=== PATIENT | female | born 1940 | race Caucasian/White ===

== ENCOUNTER 2017-04-30 10:45 | Emergency (ER) | payer MEDICARE, OTHER ==
[2017-04-30] MEDS ORDERED: TETANUS/DIPHTHERIA/PERTUSSIS 0.5 ML SYRINGE IM ONE ×2 (11:50→12:13)
[2017-04-30] MEDS ORDERED: AMPICILLIN/SULBACTAM 3 GM in SODIUM CHLORIDE 0.9% MINIBAG 100 ML IV STA (11:50)
--- NOTE | 2017-04-30 12:57 | ED Physician Documentation ---
PD HPI UPPER EXT INJURY - Stated complaint Stated Complaint: LT HAND DOG BITE - Chief complaint Chief Complaint: Ext Problem - History obtained from History obtained from: Patient - History of Present Illness Location: Left, Hand Type of injury: Other (Dog bite) Where injury occurred: Home Timing - onset: How many days ago (2) Associated symptoms: Swelling, Discolored Similar symptoms before: Has not had sx before - Additonal information Additional information: The patient is a 76-year-old female who was bitten on the left hand by her pet dog 2 days ago when she was giving him a bath. She presents now out of concern for possible infection. She denies fever. She is right-hand dominant. Tetanus status is unknown. The dog has undergone rabies vaccinations, and can be observed. Review of Systems Constitutional: denies: Fever Nose: denies: Congestion Throat: denies: Sore throat Cardiac: denies: Chest pain / pressure Respiratory: denies: Dyspnea GI: denies: Abdominal Pain, Nausea, Vomiting Skin: reports: Bite / sting Musculoskeletal: reports: Extremity pain (Left hand.) Neurologic: denies: Focal weakness, Numbness, Headache PD PAST MEDICAL HISTORY - Past Medical History Past Medical History: Yes Cardiovascular: High cholesterol Endocrine/Autoimmune: None Psych: Anxiety - Past Surgical History Past Surgical History: Yes General: Appendectomy HEENT: Tonsil/Adenoidectomy - Present Medications Home Medications: Ambulatory Orders Medication Instructions Recorded Confirmed clonazePAM [KlonoPIN] 1 mg PO DAILY 10/20/13 04/30/17 traZODone [Desyrel] 100 mg PO HS 10/20/13 04/30/17 Amox/Clav 875/125 [Augmentin] 1 each PO Q12H #14 tablet 04/30/17 - Allergies Allergies/Adverse Reactions: Allergies Allergy/AdvReac Type Severity Reaction Status Date / Time Sulfa (Sulfonamide Allergy Unknown Verified 10/27/14 20:19 Antibiotics) - Social History Does the pt smoke?: Yes Smoking Status: Current every day smoker Does the pt drink ETOH?: No Does the pt have substance abuse?: No - Immunizations Immunizations are current?: No Immunizations: TDAP >10years/unknown - POLST Patient has POLST: No PD ED PE NORMAL - Vitals Vital signs reviewed: Yes (normal) - General General: Alert and oriented X 3, Well developed/nourished - HEENT HEENT: Atraumatic - Cardiac Cardiac: RRR, No murmur - Respiratory Respiratory: No respiratory distress - Derm Derm: No rash - Extremities Extremities: Other (There is a superficial bite wound across the dorsum of the left hand, about 3 cm in length. There is surrounding erythema and slight soft tissue swelling. There is minimal warmth to palpation, and no lymphangitic streaking. There is full flexion and extension of the fingers against resistance. Distal neurovascular is intact.) - Neuro Neuro: Alert and oriented X 3, No motor deficit, No sensory deficit Results - Vitals Vitals: Vital Signs - 24 hr 04/30/17 13:13 Temperature 36.5 C Heart Rate 53 L Respiratory 18 Rate Blood Pressure 125/85 H O2 Saturation 98 Oxygen O2 Source Room air PD MEDICAL DECISION MAKING - ED course Complexity details: re-evaluated patient, considered differential, d/w patient ED course: The patient's presentation is significant for an infected dog bite to the left hand. There is no evidence of abscess or tendon involvement. Treatment in the emergency department included administration of Unasyn 3 g IV, and administration of tetanus booster. She is being discharged with prescription for Augmentin. I discussed with her and her the expected course of injury, antibiotic treatment and outpatient follow-up, as well as potentially worrisome signs or symptoms that should prompt reevaluation in the emergency department. Departure - Departure Disposition: 01 Home, Self Care Clinical Impression: Dog bite of left hand with infection Qualifiers: Encounter type: initial encounter Qualified Code(s): S61.452A - Open bite of left hand, initial encounter Condition: Stable Instructions: ED Bite Dog Follow-Up: González Springer MD [Primary Care Provider] - Prescriptions: Amox/Clav 875/125 [Augmentin] 1 each PO Q12H #14 tablet Comments: Keep your left hand elevated as much of the time as possible. Take Augmentin twice daily as prescribed. Eat probiotic yogurt while on antibiotic therapy. You can use Tylenol or ibuprofen if needed for pain or discomfort. Follow up with your primary physician within one week. Call to schedule an appointment. Return to the emergency department if you develop increasing redness, swelling, pain, red streaking up your arm, or otherwise worsening symptoms. Discharge Date/Time: 04/30/17 13:13
[2017-04-30 13:18] VITALS: BP 125/85
== END 2017-04-30 13:13 | disposition home or self-care (01) ==
LOC: ED 10:45
DX: S61.452A Open bite of left hand, initial encounter (principal); L08.9 Local infection of the skin and subcutaneous tissue, unspecified; W54.0XXA Bitten by dog, initial encounter; Z23 Encounter for immunization; Y93.F1 Activity, caregiving, bathing; Y92.009 Unspecified place in unspecified non-institutional (private) residence as the place of occurrence of the external cause; F17.200 Nicotine dependence, unspecified, uncomplicated
CPT/HCPCS: 90471; 96374; 99283

== ENCOUNTER 2017-07-17 13:47 | Outpatient (CLI) | payer MEDICARE, OTHER | END 2017-07-17 13:48 | disposition critical access hospital (66) | LOC: EMS 13:47 | PROVIDERS: ATTEND Surgery | DX: S61.432A Puncture wound without foreign body of left hand, initial encounter (principal); W54.0XXA Bitten by dog, initial encounter; Y92.039 Unspecified place in apartment as the place of occurrence of the external cause | CPT/HCPCS: A0425; A0429 ==

== ENCOUNTER 2017-07-17 14:10 | Emergency (ER) | payer MEDICARE, OTHER ==
[2017-07-17] MEDS ORDERED: AMOX/CLAV 875 MG/125 MG TABLET PO STA ×2 (15:29→16:11)
[2017-07-17] MEDS ORDERED: AMOX/CLAV 875 MG/125 MG TABLET PO ONE ×2 (15:39→16:17)
--- NOTE | 2017-07-17 15:48 | ED Physician Documentation ---
History of Present Illness - Stated complaint Stated Complaint: HAND SWELLING SP DOG BITE 2 DAYS AGO - Chief complaint Chief Complaint: Ext Problem - Additonal information Additional information: hx frm pt 76 female bit by her healthy immunized dog a few days ago two punctures medial R hand and index also tore dorsal skin on coffee table when she pulled away now red and swollen dog healthy and immunized Review of Systems Skin: reports: Bite / sting PD PAST MEDICAL HISTORY - Past Medical History Cardiovascular: High cholesterol Endocrine/Autoimmune: None Psych: Anxiety - Past Surgical History Past Surgical History: Yes General: Appendectomy HEENT: Tonsil/Adenoidectomy - Present Medications Home Medications: Ambulatory Orders Medication Instructions Recorded Confirmed clonazePAM [KlonoPIN] 1 mg PO DAILY 10/20/13 07/17/17 traZODone [Desyrel] 100 mg PO HS 10/20/13 07/17/17 Amox/Clav 875/125 [Augmentin] 1 each PO Q12H #14 tablet 07/17/17 - Allergies Allergies/Adverse Reactions: Allergies Allergy/AdvReac Type Severity Reaction Status Date / Time Sulfa (Sulfonamide Allergy Unknown Verified 10/27/14 20:19 Antibiotics) - Social History Does the pt smoke?: Yes Smoking Status: Current every day smoker Does the pt drink ETOH?: No Does the pt have substance abuse?: No - Immunizations Immunizations are current?: No Immunizations: TDAP >10years/unknown - POLST Patient has POLST: No PD ED PE NORMAL - Vitals Vital signs reviewed: Yes (pt is thin and still fully dressed in a winter coat - will recheck BP) - Extremities Extremities: Other (R hand - two punctures and a skin tear to medial hand with erythema swellin and small amt of streaking, able to range fingers s sig pain, no necrosis or crepitus) Results - Vitals Vitals: Vital Signs - 24 hr 07/17/17 07/17/17 14:14 15:59 Temperature 37.1 C 36.8 C Heart Rate 64 62 Respiratory 16 16 Rate Blood Pressure 96/53 L 100/59 L O2 Saturation 96 98 Oxygen O2 Source Room air PD MEDICAL DECISION MAKING - ED course ED course: BP was a little better = states is her baseline Departure - Departure Disposition: 01 Home, Self Care Clinical Impression: Infected dog bite Condition: Good Instructions: ED Bite Animal General Prescriptions: Amox/Clav 875/125 [Augmentin] 1 each PO Q12H #14 tablet Comments: Gently wash the wounds and then apply antibiotic ointment and a clean bandage twice a day Please come back to the ER for a wound check tomorrow or Thursday unless significantly better Return sooner if the infection worsens - sometimes, even on good antibiotic pills, the infection worsens and admission for IV antibiotics is necessary
[2017-07-17 15:59] VITALS: BP 100/59
== END 2017-07-17 16:25 | disposition home or self-care (01) ==
LOC: ED 14:10
DX: S61.451A Open bite of right hand, initial encounter (principal); L08.9 Local infection of the skin and subcutaneous tissue, unspecified; W54.0XXA Bitten by dog, initial encounter; E78.00 Pure hypercholesterolemia, unspecified; F17.200 Nicotine dependence, unspecified, uncomplicated
CPT/HCPCS: 99283; A9270

== ENCOUNTER 2018-05-15 13:31 | Outpatient (CLI) | payer MEDICARE, OTHER | END 2018-05-15 13:32 | disposition critical access hospital (66) | LOC: EMS 13:31 | PROVIDERS: ATTEND Surgery | DX: M25.552 Pain in left hip (principal); M79.605 Pain in left leg; M54.9 Dorsalgia, unspecified; V03.10XA Pedestrian on foot injured in collision with car, pick-up truck or van in traffic accident, initial encounter; Y92.413 State road as the place of occurrence of the external cause | CPT/HCPCS: A0425; A0427 ==

== ENCOUNTER 2018-05-15 13:50 | Emergency (ER) | payer MEDICARE, OTHER ==
[2018-05-15] MEDS ORDERED: IOPAMIDOL-300 100 ML VIAL IVP ONE (13:51)
[2018-05-15] MEDS ORDERED: MORPHINE 10 MG/ML VIAL IVP STA (13:56)
[2018-05-15] MEDS ORDERED: SODIUM CHLORIDE 0.9% 1,000 ML IV ONE (13:56)
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
[2018-05-15 14:06] LABS: BASOPHILS % (AUTO) 0.1 %; EOSINOPHILS # (AUTO) 0.2 10^3/uL (0.0-0.7); HGB - HEMOGLOBIN 12.1 g/dL (12.0-16.0); LYMPHOCYTES # (AUTO) 2.4 10^3/uL (1.5-3.5); MEAN CORPUSCULAR HEMOGLOBIN 34.5 pg (27.0-31.0); MEAN CORPUSCULAR HGB CONC 33.6 g/dL (32.0-36.0); MEAN CORPUSCULAR VOLUME 102.7 fL (81.0-99.0); MEAN PLATELET VOLUME 6.9 fL (7.9-10.8); MONOCYTES # (AUTO) 0.5 10^3/uL (0.0-1.0); MONOCYTES % (AUTO) 5.5 %; NEUTROPHILS # (AUTO) 6.1 10^3/uL (1.5-6.6); NEUTROPHILS % (AUTO) 66.4 %; PLT - PLATELET COUNT 333 10^3/uL (130-450); RED BLOOD COUNT 3.51 10^6/uL (4.20-5.40); RED CELL DISTRIBUTION WIDTH 12.1 % (12.0-15.0); WHITE BLOOD COUNT 9.1 x10^3/uL (4.8-10.8)
[2018-05-15] MEDS ORDERED: IOPAMIDOL-300 100 ML VIAL ONE ×2 (14:15→14:28)
[2018-05-15 14:18] LABS: INR 1.1 (0.8-1.2); PT - PROTHROMBIN TIME 12.6 secs (9.9-12.6)
[2018-05-15 14:19] LABS: ALBUMIN 3.4 g/dL (3.2-5.5); ALKALINE PHOSPHATASE 81 IU/L (42-121); ALT ALANINE AMINOTRANSFERASE 37 IU/L (10-60); AST ASPARTATE AMINOTRANSFERASE 45 IU/L (10-42); BILIRUBIN,TOTAL 0.8 mg/dL (0.2-1.0); BUN - BLOOD UREA NITROGEN 19 mg/dL (6-20); CALCIUM 9.2 mg/dL (8.5-10.3); CARBON DIOXIDE - CO2 25 mmol/L (21-32); CHLORIDE 103 mmol/L (101-111); CREATININE 0.9 mg/dL (0.4-1.0); GFR - MDRD 61 (>89); GLUCOSE 117 mg/dL (70-100); LIPASE 56 U/L (22-51); SODIUM 137 mmol/L (135-145); TOTAL PROTEIN 6.7 g/dL (6.7-8.2)
[2018-05-15] MEDS ORDERED: HYDROmorphone 2 MG/ML VIAL IVP STA (14:46)
[2018-05-15 15:49] VITALS: BP 90/55
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
[2018-05-15] MEDS: IOPAMIDOL-300 100 ML VIAL IVP ONE ×2 (16:31→16:33)
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
== END 2018-05-15 16:00 | disposition short-term general hospital (02) ==
LOC: EDUNIT# → ED 13:50
DX: S72.402A Unspecified fracture of lower end of left femur, initial encounter for closed fracture (principal); S82.145A Nondisplaced bicondylar fracture of left tibia, initial encounter for closed fracture; S82.831A Other fracture of upper and lower end of right fibula, initial encounter for closed fracture; S32.111A Minimally displaced Zone I fracture of sacrum, initial encounter for closed fracture; S32.040A Wedge compression fracture of fourth lumbar vertebra, initial encounter for closed fracture; S32.301A Unspecified fracture of right ilium, initial encounter for closed fracture; S32.10XA Unspecified fracture of sacrum, initial encounter for closed fracture; I71.2 Thoracic aortic aneurysm, without rupture; K86.9 Disease of pancreas, unspecified; F17.200 Nicotine dependence, unspecified, uncomplicated; M50.321 Other cervical disc degeneration at C4-C5 level; V03.00XA Pedestrian on foot injured in collision with car, pick-up truck or van in nontraffic accident, initial encounter; Y93.01 Activity, walking, marching and hiking
CPT/HCPCS: 36415; 70450; 71260; 72125; 72128; 72131; 73080; 73130; 73560; 73610; 73701; 74177; 80053; 80320; 83690; 85025; 85610; 96374; 96375; 99284; J1170; Q9967

== ENCOUNTER 2018-06-08 10:00 | Outpatient (CLI) | payer MEDICARE, OTHER ==
[2018-06-08 13:06] LABS: BASOPHILS # (AUTO) 0.1 10^3/uL (0.0-0.1); BASOPHILS % (AUTO) 1.4 %; EOSINOPHILS # (AUTO) 0.3 10^3/uL (0.0-0.7); EOSINOPHILS % (AUTO) 4.1 %; HGB - HEMOGLOBIN 10.8 g/dL (12.0-16.0); LYMPHOCYTES # (AUTO) 1.3 10^3/uL (1.5-3.5); LYMPHOCYTES % (AUTO) 19.8 %; MEAN CORPUSCULAR HEMOGLOBIN 31.8 pg (27.0-31.0); MEAN CORPUSCULAR HGB CONC 32.9 g/dL (32.0-36.0); MEAN CORPUSCULAR VOLUME 96.7 fL (81.0-99.0); MEAN PLATELET VOLUME 7.2 fL (7.9-10.8); MONOCYTES # (AUTO) 0.6 10^3/uL (0.0-1.0); MONOCYTES % (AUTO) 9.5 %; NEUTROPHILS # (AUTO) 4.2 10^3/uL (1.5-6.6); NEUTROPHILS % (AUTO) 65.2 %; PLT - PLATELET COUNT 472 10^3/uL (130-450); RED BLOOD COUNT 3.39 10^6/uL (4.20-5.40); RED CELL DISTRIBUTION WIDTH 17.2 % (12.0-15.0); WHITE BLOOD COUNT 6.4 x10^3/uL (4.8-10.8)
[2018-06-08 13:16] LABS: CALCIUM 8.9 mg/dL (8.5-10.3); CREATININE 0.6 mg/dL (0.4-1.0)
== END 2018-06-08 10:01 ==
LOC: LAB.R 10:00
PROVIDERS: ATTEND Internal Medicine
DX: I10 Essential (primary) hypertension (principal); R79.89 Other specified abnormal findings of blood chemistry; R68.89 Other general symptoms and signs
CPT/HCPCS: 80048; 85025

== ENCOUNTER 2019-01-04 09:30 | Emergency (ER) | payer MEDICARE, OTHER ==
[2019-01-04 09:44] VITALS: BP 108/57
== END 2019-01-04 11:15 | disposition left against medical advice (07) ==
LOC: ED 09:30
DX: K59.00 Constipation, unspecified (principal); Z53.21 Procedure and treatment not carried out due to patient leaving prior to being seen by health care provider

== ENCOUNTER 2019-01-18 14:58 | Outpatient (CLI) | payer MEDICARE, OTHER ==
--- NOTE | 2019-01-19 10:50 | XRAY Report ---
Reason: FRACTURE OF OTHER PARTS OF PELVIS, SEQUELA,PAIN IN Procedure Date: 01/18/2019 Accession Number: [id number] / [id number] Procedure: XRN - Hip w/Pelvis 2-3V LT CPT Code: FULL RESULT: EXAM: LEFT HIP RADIOGRAPHY EXAM DATE: 01/18/2019 03:25 PM. CLINICAL HISTORY: Fracture of other parts of pelvis, sequela, pain. COMPARISON: ABDOMEN/PELVIS W/ 05/15/2018 3:06 PM. TECHNIQUE: 2 views. FINDINGS: Bones: There are 2 transverse fixation screws across the right SI joint; the inferior screw crosses both SI joints. There is a second long fixation screw fixating a right obturator ring fracture at the junction of superior pubic ramus and acetabulum. Moderate lucency is noted along the threads of this fixation screw consistent with motion/loosening. There is apparent mature healing of the fixated fracture. Healing changes are noted of the inferior pubic ramus fracture. Sequelae of prior nondisplaced fractures of the left obturator ring are noted. No acute fracture. No acute fractures or significant malalignment. Joints: No dislocation or subluxation. Mild asymmetric joint space narrowing of the left hip. No significant osteophytosis. Soft Tissues: Normal. No soft tissue swelling. IMPRESSION: 1. Sequelae of right hemipelvis fracture fixation as described. 2. Healing fracture of the left obturator ring. No acute fractures appreciated. 3. Mild asymmetric joint space narrowing of the left hip weightbearing articular cartilage. RADIA
--- NOTE | 2019-01-19 10:51 | XRAY Report ---
Reason: FRACTURE OF OTHER PARTS OF PELVIS, SEQUELA,PAIN IN Procedure Date: 01/18/2019 Accession Number: [id number] / [id number] Procedure: XRN - Ankle 3 View LT CPT Code: FULL RESULT: EXAM: LEFT ANKLE RADIOGRAPHY EXAM DATE: 01/18/2019 03:49 PM. CLINICAL HISTORY: Fracture of other parts of pelvis. Pain. COMPARISON: KNEE 3 VIEW LT 01/18/2019 3:29 PM. TECHNIQUE: 3 views. FINDINGS: Bones: Normal. No fractures or bone lesions. Joints: Normal. No effusion. No subluxations. The ankle mortise is normally aligned. Soft Tissues: Normal. No soft tissue swelling. IMPRESSION: Normal ankle radiography. RADIA
--- NOTE | 2019-01-19 10:51 | XRAY Report ---
Reason: FRACTURE OF OTHER PARTS OF PELVIS, SEQUELA,PAIN IN Procedure Date: 01/18/2019 Accession Number: [id number] / [id number] Procedure: XRN - Knee 3 View LT CPT Code: FULL RESULT: EXAM: LEFT KNEE RADIOGRAPHY EXAM DATE: 01/18/2019 03:29 PM. CLINICAL HISTORY: Fracture of other parts of pelvis, sequela, pain in. COMPARISON: KNEE 4 VIEW BILAT 05/15/2018 2:27 PM. TECHNIQUE: 3 views. FINDINGS: Bones: Operative sequela of open reduction internal fixation of an impacted comminuted intra-articular fracture distal femoral metaphysis. Fixation has been performed with bilateral plate and screw fixation devices and multiple interlocking screws. Fracture is healing with roughly 7-8 mm of impaction; otherwise alignment appears approximately anatomic. There is no evidence of hardware failure or delayed complication. Joints: Small to moderate suprapatellar effusion is present. Soft Tissues: Normal. No soft tissue swelling. IMPRESSION: Operative changes after fracture fixation as described. RADIA
== END 2019-01-18 14:59 | disposition home or self-care (01) ==
LOC: DI.N 14:58
PROVIDERS: ATTEND Internal Medicine
DX: M25.562 Pain in left knee (principal); S32.89XD Fracture of other parts of pelvis, subsequent encounter for fracture with routine healing

== ENCOUNTER 2021-05-10 16:39 | Outpatient (CLI) | payer MEDICARE, OTHER | END 2021-05-10 16:40 | disposition critical access hospital (66) | LOC: EMS 16:39 | DX: Z04.3 Encounter for examination and observation following other accident (principal) | CPT/HCPCS: A0425; A0429 ==

== ENCOUNTER 2021-05-10 17:00 | Emergency (ER) | payer MEDICARE, OTHER ==
[2021-05-10 17:39] VITALS: BP 100/62
== END 2021-05-10 17:46 | disposition left against medical advice (07) ==
LOC: EDUNIT# → ED 17:00
DX: Z53.21 Procedure and treatment not carried out due to patient leaving prior to being seen by health care provider (principal)

== ENCOUNTER 2021-07-13 10:01 | Outpatient (CLI) | payer MEDICARE, OTHER ==
[2021-07-13] MEDS ORDERED: IOPAMIDOL-300 100 ML VIAL ONE (10:25)
[2021-07-13] MEDS ORDERED: IOVERSOL 320 50 ML VIAL ONE (10:25)
[2021-07-13 10:59] LABS: CREATININE 0.9 mg/dL (0.4-1.0)
[2021-07-13] MEDS ORDERED: IOPAMIDOL-300 100 ML VIAL IVP ONE (11:39)
[2021-07-13] MEDS ORDERED: IOVERSOL 320 50 ML VIAL PO ONE (11:40)
--- NOTE | 2021-07-13 17:17 | CT Report ---
PROCEDURE: Abdomen/Pelvis W INDICATIONS: IRRITABLE BOWEL SYNDROME CONTRAST: IV CONTRAST: Isovue 370 ml: 100 PO CONTRAST: Optiray 320 ml50 TECHNIQUE: After the administration of oral and IV contrast, 5 mm thick sections acquired from the diaphragms to the symphysis. 5 mm thick coronal and sagittal reformats were acquired. For radiation dose reducti on, the following was used: automated exposure control, adjustment of mA and/or kV according to carlos ent size. COMPARISON: 05/07/2018, 10/27/2014 FINDINGS: Image quality: Excellent. ABDOMEN: Lung bases: Mild scarring/atelectasis can be seen at the lung bases dependently. Heart size is tamar l. A small hiatal hernia is incidentally noted. Solid organs: Liver and spleen are normal in size and enhancement. Gallbladder wall does not appear thickened. Biliary system is non dilated. Pancreas enhances normally. No adrenal nodules. Kidn eys demonstrate normal size and enhancement, without hydronephrosis. Peritoneum and bowel: Generalized wall thickening can be seen involving the distal colon, with mild h yperenhancement of the trammell. There are proximal colon demonstrates no significant abnormality. No di lated loops of small bowel are seen. No free air or significant free fluid can be seen. No focal flui d collection can be seen to suggest abscess. Nodes and vessels: No retroperitoneal or mesenteric adenopathy by size criteria. Aorta and inferior vena cava are normal in size. Miscellaneous: No ventral hernias. Anterior abdominal wall jeff can be seen. PELVIS: Genitourinary: Bladder wall thickness is normal. Miscellaneous: No inguinal hernias or adenopathy. Bones: No suspicious bony lesions. Postoperative change of the right pelvis can be seen. No vertebra l body compression fractures. Mild S-shaped scoliotic curvature is seen. Degenerative changes are se en throughout, which are worst at the L5-S1 level. IMPRESSION: Wall thickening and hyperenhancement can be seen involving the distal colon, which is co nsistent with the given clinical history. No findings of perforation or abscess are detected. Incidental note is made of: Small hiatal hernia Anterior abdominal wall jeff S-shaped scoliotic curvature Focal L5-S1 degenerative change Right pelvis postoperative change Reviewed by: Nishant Burgos MD on 07/13/2021 4:16 PM AKDT Approved by: Nishant Burgos MD on 07/13/2021 4:16 PM MARCELINA Station ID: [id number]
== END 2021-07-13 10:02 | disposition home or self-care (01) ==
LOC: LAB 10:01
PROVIDERS: ATTEND Internal Medicine
DX: K58.8 Other irritable bowel syndrome (principal)
CPT/HCPCS: 36415; 74177; 82565; Q9967

== ENCOUNTER 2021-08-29 15:17 | Outpatient (CLI) | payer MEDICARE, OTHER | END 2021-08-29 15:18 | disposition home or self-care (01) | LOC: LAB 15:17 | PROVIDERS: ATTEND Surgery | DX: R19.7 Diarrhea, unspecified (principal) | CPT/HCPCS: 87493 ==

== ENCOUNTER 2021-09-02 10:39 | Outpatient (CLI) | payer MEDICARE, OTHER | END 2021-09-02 10:40 | disposition home or self-care (01) | LOC: LAB 10:39 | PROVIDERS: ATTEND Surgery | DX: Z53.9 Procedure and treatment not carried out, unspecified reason (principal) ==

== ENCOUNTER 2021-09-18 10:15 | Day surgery (SDC) | payer MEDICARE, OTHER ==
[2021-09-18] MEDS ORDERED: LIDOCAINE-MPF 2% 5 ML VIAL TD ONE (10:16)
[2021-09-18] MEDS ORDERED: PROPOFOL 200 MG/20 ML VIAL IVP ONE (10:16)
[2021-09-18] MEDS ORDERED: PROPOFOL 500 MG/50 ML 500 MG/50 ML VIAL IV ONE (10:16)
[2021-09-18] MEDS ORDERED: LACTATED RINGERS 1,000 ML IV ONE ×2 (10:24→13:34)
--- NOTE | 2021-09-18 12:05 | ANESTHESIA ---
Pre-Anesthesia VS, & Labs - Diagnosis change in bowel habits - Procedure colonoscopy Vital Signs: Temp Pulse Resp BP Pulse Ox 36.6 C 73 12 124/84 H 98 09/18/21 10:24 09/18/21 10:24 09/18/21 10:24 09/18/21 10:24 09/18/21 10:24 Height: 5 ft 5 in Weight (kg): 49.3 kg Body Mass Index: 18.1 BMI Classification: Underweight - NPO >8 hours - Is Patient ?: No Home Medications and Allergies Allergies/Adverse Reactions: Allergies Allergy/AdvReac Type Severity Reaction Status Date / Time Sulfa (Sulfonamide Allergy Unknown Verified 09/17/21 14:01 Antibiotics) Anes History & Medical History - Anesthetic History Anesthesia Complications: reports: No previous complications Family history of Anesthesia Complications: Denies Family history of Malignant Hyperthermia: Denies - Medical History Cardiovascular: reports: None Pulmonary: reports: None Gastrointestinal: reports: Other Urinary: reports: None Musculoskeletal: reports: Other Endocrine/Autoimmune: reports: None Skin: reports: None Smoking Status: Current every day smoker - Surgical History General: reports: Appendectomy, Other Eyes Ears Nose Throat (EENT): reports: Tonsil/Adenoidectomy Gynecologic: reports: Oophrectomy Orthopedic: reports: Other Exam General: Alert, Oriented x3, Cooperative Dental: WNL Mouth Openin Fingerbreadth Neck Mobility: Normal Mallampati classification: II Thyromental Distance: 4-6 cm Respiratory: Lungs clear Cardiovascular: Regular rate Plan Anesthesia Type: Total IV Consent for Procedure(s) Verified and Reviewed: Yes Code Status: Attempt Resuscitation ASA classification: 2-Mild systemic disease Is this case an emergency?: No
--- NOTE | 2021-09-18 14:27 | ANESTHESIA POST OP EVALUATION ---
Anesthesia Post Eval - Post Anesthesia Eval Vitals: Last Vital Signs Temp 36.6 C 09/18/21 13:45 Pulse 68 09/18/21 13:45 Resp 16 09/18/21 13:45 BP 96/65 09/18/21 13:45 Pulse Ox 95 09/18/21 13:45 CV Function Including HR & BP: Stable Pain Control: Satisfactory Nausea & Vomiting: Negative Mental Status: Baseline Respiratory Status: Airway Patent Hydration Status: Satisfactory Anesthesia Complications: None
[2021-09-18 14:35] VITALS: BP 122/67
== END 2021-09-18 10:16 | disposition home or self-care (01) ==
LOC: SDS 10:15
PROVIDERS: ATTEND Surgery
PROC: 0DBE8ZX Excision of Large Intestine, Via Natural or Artificial Opening Endoscopic, Diagnostic (ICD-10-PCS; principal; 2021-09-18 11:15)
DX: R19.7 Diarrhea, unspecified (principal); D12.2 Benign neoplasm of ascending colon; K63.5 Polyp of colon; J44.9 Chronic obstructive pulmonary disease, unspecified; F41.9 Anxiety disorder, unspecified; F32.9 Major depressive disorder, single episode, unspecified; G47.30 Sleep apnea, unspecified; F17.200 Nicotine dependence, unspecified, uncomplicated; G62.9 Polyneuropathy, unspecified; Z79.82 Long term (current) use of aspirin; Z79.899 Other long term (current) drug therapy
CPT/HCPCS: 45380; J7120

== ENCOUNTER 2022-03-07 17:29 | Outpatient (CLI) | payer MEDICARE, OTHER | END 2022-03-07 17:30 | disposition EMS.NT | LOC: EMS 17:29 | DX: Z03.89 Encounter for observation for other suspected diseases and conditions ruled out (principal) ==

== ENCOUNTER 2022-05-17 08:14 | Outpatient (CLI) | payer MEDICARE, OTHER | END 2022-05-17 08:15 | disposition EMS.NT | LOC: EMS 08:14 | DX: R51.9 Headache, unspecified (principal) ==

== ENCOUNTER 2022-07-11 21:13 | Outpatient (CLI) | payer MEDICARE, OTHER | END 2022-07-11 21:14 | disposition short-term general hospital (02) | LOC: EMS 21:13 | DX: M25.551 Pain in right hip (principal); W01.0XXA Fall on same level from slipping, tripping and stumbling without subsequent striking against object, initial encounter; Y93.K1 Activity, walking an animal; Y92.481 Parking lot as the place of occurrence of the external cause | CPT/HCPCS: A0425; A0427 ==

== ENCOUNTER 2022-11-11 14:43 | Emergency (ER) | payer MEDICARE, OTHER ==
[2022-11-11] MEDS ORDERED: oxyCODONE 5 MG TABLET PO STA (15:29)
--- NOTE | 2022-11-11 15:40 | ED Physician Documentation ---
PD HPI LOWER EXT INJURY - Stated complaint Stated Complaint: HIP/LEG/BACKSIDE PX - Chief complaint Chief Complaint: Ext Problem - History obtained from History obtained from: Patient, Family (son) - Additional information Additional information: Here with son Ken R hip 07/10 with ORIF In snf x 1 mo then HH, released from home health Can't walk Pain not controlled Has bed sore not eating sent for placement. Review of Systems Constitutional: reports: Fever, Chills Nose: reports: Reviewed and negative Throat: reports: Reviewed and negative Cardiac: reports: Reviewed and negative Respiratory: reports: Reviewed and negative PD PAST MEDICAL HISTORY - Past Medical History Cardiovascular: None Respiratory: None Endocrine/Autoimmune: None GI: Other : None HEENT: Chronic vision loss Psych: Depression Musculoskeletal: Other Derm: None - Past Surgical History Past Surgical History: Yes General: Appendectomy, Other Ortho: Other /AUDITOR: Oophrectomy HEENT: Tonsil/Adenoidectomy - Allergies Allergies/Adverse Reactions: Allergies Allergy/AdvReac Type Severity Reaction Status Date / Time Sulfa (Sulfonamide Allergy Unknown Verified 11/11/22 14:46 Antibiotics) - Social History Does the pt smoke?: Yes Smoking Status: Current every day smoker Does the pt drink ETOH?: No Does the pt have substance abuse?: No - Immunizations Immunizations are current?: No Immunizations: TDAP >10years/unknown - POLST Patient has POLST: No PD ED PE NORMAL - Vitals Vital signs reviewed: Yes - General General: Alert and oriented X 3, No acute distress, Other (V thin) - HEENT HEENT: PERRL, EOMI - Neck Neck: Supple, no meningeal sign, No bony TTP, No bruit - Cardiac Cardiac: RRR, No murmur - Respiratory Respiratory: No respiratory distress, Clear bilaterally - Abdomen Abdomen: Normal bowel sounds, Soft, Non tender - Back Back: Other (Mostly stage 2 pressure ulcer with pinpoint deeper hole centrally) - Derm Derm: Normal color, Warm and dry - Extremities Extremities: No edema, No calf tenderness / cord - Neuro Neuro: Alert and oriented X 3, Normal speech Results - Vitals Vitals: Vital Signs - 24 hr 11/11/22 11/11/22 11/11/22 14:46 15:04 17:02 Temperature 36.6 C Heart Rate 64 51 L 58 L Respiratory 64 H 18 18 Rate Blood Pressure 144/86 H 113/74 137/76 H O2 Saturation 97 95 98 Oxygen O2 Source Room air - Labs Labs: Laboratory Tests 11/11/22 11/11/22 11/11/22 15:40 15:40 15:59 WBC 6.4 RBC 4.77 Hgb 14.4 Hct 43.5 MCV 91.2 MCH 30.2 MCHC 33.1 RDW 13.2 Plt Count 224 MPV 9.8 Neut # (Auto) 4.1 Lymph # (Auto) 1.6 Randall # (Auto) 0.5 Eos # (Auto) 0.1 Baso # (Auto) 0.1 Absolute Nucleated RBC 0.00 Nucleated RBC % 0.0 Sodium 134 L Potassium 4.2 Chloride 98 L Carbon Dioxide 28 Anion Gap 8.0 BUN 12 Creatinine 0.8 Estimated GFR (MDRD) 69 L Glucose 91 Calcium 8.9 Magnesium 1.9 Total Bilirubin 0.7 AST 17 ALT 11 Alkaline Phosphatase 61 Total Protein 6.8 Albumin 3.7 Globulin 3.1 Albumin/Globulin Ratio 1.2 Prealbumin 17 L SARS-CoV-2 (PCR) NOT DETECTED - Rads (name of study) L hip pain Radiology: Final report received, EMP read indepedently PD Medical Decision Making - ED course ED course: 82-year-old woman who presents malnourished with ongoing pain needs. Given that her BMI of 15 she actually does fit criteria for inpatient treatment per MCG. I suspect her wounds and hip fracture are probably not healing well due to her malnutrition. Spoke with Dr. Rosenthal for admission at [address] Rosenthal saw the patient and feels she does not meet criteria for admission and therefore she is boarding in the emergency department pending social work for placement. Departure - Departure Clinical Impression: Protein-calorie malnutrition, severe, Sacral pressure ulcer Condition: Serious
[2022-11-11 15:44] LABS: BASOPHILS # (AUTO) 0.1 10^3/uL (0.0-0.1); BASOPHILS % (AUTO) 0.8 %; EOSINOPHILS # (AUTO) 0.1 10^3/uL (0.0-0.7); HCT - HEMATOCRIT 43.5 % (37.0-47.0); HGB - HEMOGLOBIN 14.4 g/dL (12.0-16.0); LYMPHOCYTES # (AUTO) 1.6 10^3/uL (1.5-3.5); LYMPHOCYTES % (AUTO) 24.6 %; MEAN CORPUSCULAR HEMOGLOBIN 30.2 pg (27.0-31.0); MEAN CORPUSCULAR HGB CONC 33.1 g/dL (32.0-36.0); MEAN CORPUSCULAR VOLUME 91.2 fL (81.0-99.0); MEAN PLATELET VOLUME 9.8 fL (7.9-10.8); MONOCYTES # (AUTO) 0.5 10^3/uL (0.0-1.0); NEUTROPHILS # (AUTO) 4.1 10^3/uL (1.5-6.6); NEUTROPHILS % (AUTO) 64.4 %; PLT - PLATELET COUNT 224 10^3/uL (130-450); RED BLOOD COUNT 4.77 10^6/uL (4.20-5.40); RED CELL DISTRIBUTION WIDTH 13.2 % (12.0-15.0); WHITE BLOOD COUNT 6.4 x10^3/uL (4.8-10.8)
[2022-11-11 15:57] LABS: ALBUMIN 3.7 g/dL (3.2-5.5); ALBUMIN/GLOBULIN RATIO 1.2 (1.0-2.2); BILIRUBIN,TOTAL 0.7 mg/dL (0.2-1.0); CALCIUM 8.9 mg/dL (8.5-10.3); CREATININE 0.8 mg/dL (0.4-1.0); MAGNESIUM 1.9 mg/dL (1.7-2.8); POTASSIUM 4.2 mmol/L (3.5-5.0); TOTAL PROTEIN 6.8 g/dL (6.7-8.2)
--- NOTE | 2022-11-11 16:28 | XRAY Report ---
PROCEDURE: Hip w/Pelvis 2-3V RT INDICATIONS: Hip pain TECHNIQUE: AP pelvis with lateral view(s) of the left hip(s). COMPARISON: CT abdomen and pelvis 07/13/2021 FINDINGS: Rotated exam which limits evaluation. Remote appearing right femoral neck fracture status post automotive internet sales consultant al screw fixation. No abnormal lucency surrounding the hardware. Bridging bony callus formation is id entified although there is subtle residual fracture lucency suspected. IMPRESSION: Limited rotated exam status post right femoral neck fracture fixation. No obvious acute f inding. If there is high degree of clinical suspicion for acute fracture, pelvic CT would be recommen ded. Reviewed by: Klaus Garsia MD on 11/11/2022 4:27 PM PST Approved by: Klaus Garsia MD on 11/11/2022 4:27 PM PST Station ID: [id number]
[2022-11-11] MEDS ORDERED: HYDROmorphone 1 MG/ML CARPUJECT IVP STA (17:02)
[2022-11-11] MEDS ORDERED: SODIUM CHLORIDE 0.9% 1,000 ML IV STA (17:02)
[2022-11-11] MEDS ORDERED: ACETAMINOPHEN 500 MG TABLET PO PRN (17:32)
[2022-11-11] MEDS ORDERED: ONDANSETRON 4 MG/2 ML VIAL IVP PRN (17:32)
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
[2022-11-11] MEDS: MIN OIL/DIMETHICON/COCONUT OIL 92 GM TUBE TOP SCH (20:45)
[2022-11-11] MEDS ORDERED: NICOTINE 21 MG PATCH TOP STA (20:47)
[2022-11-11] MEDS ORDERED: COD LIVER OIL/ZINC OXIDE 113 GM TUBE TOP SCH (21:00)
[2022-11-12] MEDS: PANTOPRAZOLE 40 MG TABLET PO SCH (06:34)
[2022-11-12] MEDS: oxyCODONE 5 MG TABLET PO PRN ×3 (07:33→21:15)
[2022-11-12] MEDS: MIN OIL/DIMETHICON/COCONUT OIL 92 GM TUBE TOP SCH ×2 (09:28→20:51)
[2022-11-12] MEDS: ENOXAPARIN 40 MG/0.4 ML SYRINGE SUBQ SCH (09:28)
--- NOTE | 2022-11-12 12:28 | ED Physician Documentation ---
ED Addendum - Addendum Addendum: 11/12/22 12:26 The patient was sitting up awake and alert and conversant and interacting with physical therapy at the time I went in to see her. She was not having any labored breathing or distress. Apparently she was able to walk short distance with the help of physical therapy. There is a consultation note from the hospitalist from yesterday. Social work met with the patient and's dates the patient would need to pay [id number] in order to get to rehab or group home. The patient states she does not have the funds for that. Social work is wanting to hear from her son who apparently helps with the caretaking. At this point he was not answering his phone. He had been present in the ER yesterday she is social they are hoping the son will show up her lease call back. Social work is hoping to facilitate assistance at home for the son and patient with the intention that we would need to discharge her as they are unable to get placement due to funding.
[2022-11-12] MEDS ORDERED: NICOTINE 21 MG PATCH TOP STA (15:06)
[2022-11-13] MEDS: PANTOPRAZOLE 40 MG TABLET PO SCH (06:49)
[2022-11-13] MEDS: ENOXAPARIN 40 MG/0.4 ML SYRINGE SUBQ SCH (08:31)
[2022-11-13] MEDS: MIN OIL/DIMETHICON/COCONUT OIL 92 GM TUBE TOP SCH (08:31)
[2022-11-13 11:00] VITALS: BP 133/81
--- NOTE | 2022-11-13 14:52 | ED Physician Documentation ---
ED Addendum - Addendum Addendum: 11/13/22 14:52 Patient has grown frustrated by the weight and is requesting discharge. She is competent and feels to be okay at home. Discussed that we were happy to keep her in the emergency department pending more appropriate placement given all the issues she has been having and she declines. Disposition: Discharged home
== END 2022-11-13 15:31 | disposition home or self-care (01) ==
LOC: ED 14:43
DX: E43 Unspecified severe protein-calorie malnutrition (principal); L89.159 Pressure ulcer of sacral region, unspecified stage; F17.200 Nicotine dependence, unspecified, uncomplicated; Z20.822 Contact with and (suspected) exposure to COVID-19
CPT/HCPCS: 36415; 73502; 80053; 83735; 84134; 85025; 87635; 96372; 96374; 99284; A6250; A9270; J1170; J1650

== ENCOUNTER 2022-12-26 13:49 | Outpatient (CLI) | payer MEDICARE, OTHER ==
--- NOTE | 2022-12-26 14:47 | XRAY Report ---
PROCEDURE: Hip w/Pelvis 2-3V RT INDICATIONS: LOW BACK PAIN, RIGHT KNEE AND HIP PAIN TECHNIQUE: AP pelvis with lateral view of the right hip. COMPARISON: Right hip radiographs 11/11/2022 FINDINGS: Bones: Generalized osteopenia. Postsurgical changes are seen from right pelvis and sacral fracture fi xations with metallic screws. Fixation screws are also seen in the right proximal femur. Hardware is grossly intact. Osseous alignment is unchanged when compared to the prior radiographs. Mild chronic f racture deformities of the bilateral inferior pubic rami. No definite acute fracture is seen. Degener ative changes are seen in the left hip and lumbar spine. Soft tissues: The visualized bowel gas pattern is normal. No suspicious soft tissue calcifications. IMPRESSION: 1.Chronic postsurgical changes in the pelvis and right hip with unchanged alignment. 2.No acute osseous abnormality. If there is continued clinical concern, consider further evaluation w ith CT or MRI. 3.Generalized osteopenia. 4.Degenerative changes in the lumbar spine and left hip. Reviewed by: Mateo Medina MD on 12/26/2022 2:46 PM PST Approved by: Mateo Medina MD on 12/26/2022 2:46 PM PST Station ID: [id number]
--- NOTE | 2022-12-26 17:15 | XRAY Report ---
PROCEDURE: Sacrum/Coccyx INDICATIONS: LOW BACK PAIN, RIGHT KNEE AND HIP PAIN TECHNIQUE: 3 views of the sacrum and coccyx acquired. COMPARISON: CT 07/13/2021, radiograph 11/11/2022 FINDINGS: Bones: Transsacroiliac screws. Right femur fixation screws and impacted fracture again seen. Lumbosac ral spondylotic changes. Moderate to severe left hip arthrosis. Right pelvic ring screw. Soft tissues: Surgical material seen projecting over the pelvis and lower abdomen. Phleboliths. IMPRESSION: Multiple unchanged postsurgical material. Similar appearance of right femur fracture post fixation. L eft hip degenerative changes. Lumbosacral and pubic symphyseal degenerative changes. No acute finding s compared to prior. If there is high concern for occult injury, consider repeat radiography or cross -sectional imaging. Reviewed by: Josue Dubose MD on 12/26/2022 5:14 PM PST Approved by: Josue Dubose MD on 12/26/2022 5:14 PM PST Station ID: [id number]
--- NOTE | 2022-12-26 17:21 | XRAY Report ---
PROCEDURE: Knee 3 View RT INDICATIONS: LOW BACK PAIN, RIGHT KNEE AND HIP PAIN TECHNIQUE: 3 views of the right knee(s) were acquired. COMPARISON: January 18, 2019 FINDINGS: Bones: Mild to moderate arthrosis. No displaced fracture or dislocation. Soft tissues: No significant joint effusion. IMPRESSION: Mild to moderate arthrosis. If there is high concern for further derangement, consider M RI evaluation. Reviewed by: Josue Dubose MD on 12/26/2022 5:20 PM PST Approved by: Josue Dubose MD on 12/26/2022 5:20 PM PST Station ID: [id number]
== END 2022-12-26 13:50 | disposition home or self-care (01) ==
LOC: DI 13:49
PROVIDERS: ATTEND Internal Medicine
DX: M17.11 Unilateral primary osteoarthritis, right knee (principal); M16.12 Unilateral primary osteoarthritis, left hip; M85.88 Other specified disorders of bone density and structure, other site; M47.816 Spondylosis without myelopathy or radiculopathy, lumbar region; M47.817 Spondylosis without myelopathy or radiculopathy, lumbosacral region; S72.91XD Unspecified fracture of right femur, subsequent encounter for closed fracture with routine healing

== ENCOUNTER 2023-04-14 09:35 | Outpatient (CLI) | payer MEDICARE, OTHER ==
--- NOTE | 2023-04-14 16:45 | XRAY Report ---
PROCEDURE: Sacrum/Coccyx INDICATIONS: EVAL FOR OSTEOMYELITIS TECHNIQUE: 3 views of the sacrum and coccyx acquired. COMPARISON: None FINDINGS: Bones: No fractures or dislocations. No suspicious bony lesions. Screw fixation traversing the lyla c wings and right hemisacrum. Screw projects over the right superior pubic ramus. Chronic fracture de formity of the inferior pubic ramus on the right. Screw fixation of the right femoral neck has been p erformed. Soft tissues: Visualized bowel gas pattern is normal. No suspicious soft tissue densities. IMPRESSION: 1. Postsurgical sequelae. 2. No acute fracture. No osseous lesion. If symptoms and/or clinical suspicion for pathology continue , further assessment with repeat plain films, or advanced imaging (e.g., CT, MRI, or bone scan) is re commended for further assessment. Reviewed by: Doris Young MD on 04/14/2023 4:44 PM PDT Approved by: Doris Young MD on 04/14/2023 4:44 PM PDT Station ID: [id number]
== END 2023-04-14 09:36 | disposition home or self-care (01) ==
LOC: DI 09:35
PROVIDERS: ATTEND Family Medicine
DX: L89.153 Pressure ulcer of sacral region, stage 3 (principal)

== ENCOUNTER 2023-04-25 09:38 | Outpatient (CLI) | payer MEDICARE, OTHER ==
--- NOTE | 2023-04-25 21:11 | Ultrasound Report ---
PROCEDURE: Abdomen Complete INDICATIONS: LLQ PAIN, RIGHT HIP PAIN TECHNIQUE: Real-time scanning was performed of the abdominal and retroperitoneal organs, with image documentatio n. COMPARISON: None. FINDINGS: Liver: Liver is normal in size and homogeneous in echotexture. Gallbladder: Unremarkable. Biliary ducts: Intrahepatic bile ducts are non-dilated. Extrahepatic bile duct caliber measures 10. 2 mm. Normal is 6-7 mm or less in diameter, or 10 mm or less post-cholecystectomy. Pancreas: Visualized portions of the pancreas are sonographically normal. Spleen: Spleen is normal in size and homogeneous in echotexture. Kidneys: Kidneys are normal in size and echotexture. Right kidney measures 9.9 cm long; left kidney measures 9.6 cm long. No hydronephrosis or nephrolithiasis. No solid masses. No complex renal cyst ic lesions which require follow-up. Aorta: Visualized aorta is normal in caliber at less than 3 cm. Calcified plaque is seen throughout the abdominal aorta. Iliacs: Proximal common iliac arteries are normal in caliber at less than 2.5 cm. IVC: Intrahepatic inferior vena cava is patent. Miscellaneous: No free abdominal fluid. IMPRESSION: 1. No acute abnormality of the abdomen. 2. Common bile duct is nonspecific and probably normal given patient age. 3. Calcified abdominal aorta with a normal caliber. Reviewed by: Macho Randall on 04/25/2023 8:09 PM MARCELINA Approved by: Macho Randall on 04/25/2023 8:09 PM MARCELINA Station ID: [id number]
== END 2023-04-25 09:39 | disposition home or self-care (01) ==
LOC: DI 09:38
PROVIDERS: ATTEND Internal Medicine
DX: R10.32 Left lower quadrant pain (principal); I70.0 Atherosclerosis of aorta

== ENCOUNTER 2023-04-25 09:39 | Outpatient (CLI) | payer MEDICARE, OTHER ==
--- NOTE | 2023-04-25 20:17 | XRAY Report ---
PROCEDURE: Shoulder 3 View RT INDICATIONS: SHOULDER PAIN TECHNIQUE: 3 views of the shoulder were acquired. COMPARISON: None. FINDINGS: Bones: No fractures or dislocations. Degenerative changes of the right glenohumeral joint and acrom ioclavicular joint. There is narrowing of the acromiohumeral interval. No suspicious bony lesions. V isualized ribs appear intact. Soft tissues: No suspicious soft tissue calcifications. IMPRESSION: 1. No acute abnormality. 2. Narrowing of the acromiohumeral interval suggests rotator cuff pathology. 2. Degenerative changes of the right glenohumeral joint and acromioclavicular joint. Reviewed by: Macho Randall on 04/25/2023 7:15 PM MARCELINA Approved by: Macho Randall on 04/25/2023 7:15 PM MARCELINA Station ID: [id number]
== END 2023-04-25 09:40 | disposition home or self-care (01) ==
LOC: DI 09:39
PROVIDERS: ATTEND Internal Medicine
DX: M19.011 Primary osteoarthritis, right shoulder (principal); R10.32 Left lower quadrant pain; I70.0 Atherosclerosis of aorta

== ENCOUNTER 2023-07-24 13:22 | Emergency (ER) | payer MEDICARE, OTHER ==
[2023-07-24 13:33] VITALS: BP 116/60; O2SAT 98
== END 2023-07-24 14:18 | disposition left against medical advice (07) ==
LOC: ED 13:22
DX: Z53.21 Procedure and treatment not carried out due to patient leaving prior to being seen by health care provider (principal)

== ENCOUNTER 2023-11-06 19:49 | Outpatient (CLI) | payer MEDICARE, OTHER | END 2023-11-06 23:59 | disposition short-term general hospital (02) | LOC: EMS 19:49 | DX: R07.81 Pleurodynia (principal); L89.319 Pressure ulcer of right buttock, unspecified stage | CPT/HCPCS: A0425; A0429 ==

== ENCOUNTER 2023-11-26 13:26 | Outpatient (CLI) | payer MEDICARE, OTHER ==
[2023-11-26] MEDS: ALBUTEROL 1 PUFF INH STA (14:53)
== END 2023-11-26 13:27 | disposition home or self-care (01) ==
LOC: RT 13:26
PROVIDERS: ATTEND Internal Medicine
DX: R06.02 Shortness of breath (principal); F17.210 Nicotine dependence, cigarettes, uncomplicated
CPT/HCPCS: 94060; 94727; 94729

== ENCOUNTER 2024-05-12 05:52 | Outpatient (CLI) | payer MEDICARE, OTHER | END 2024-05-12 23:59 | disposition critical access hospital (66) | LOC: EMS 05:52 | DX: M25.551 Pain in right hip (principal) | CPT/HCPCS: A0425; A0429 ==

== ENCOUNTER 2024-05-12 06:12 | Emergency (ER) | payer MEDICARE, OTHER ==
[2024-05-12 06:33] VITALS: O2SAT 95
--- NOTE | 2024-05-12 06:33 | ED Physician Documentation ---
History of Present Illness - Stated complaint Stated Complaint: HIP PX/UNABLE TO WALK - Chief complaint Chief Complaint: Ext Problem - History obtained from History obtained from: Patient - Additonal information Additional information: 83-year-old woman presents with chronic right hip pain over the past few months, worsening tonight when she went outside to have a cigarette. Ambulatory on the leg without difficulty. Denies acute injury. She did have a fall a while back that contributed to her symptoms. 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 HEENT: Tonsil/Adenoidectomy - Present Medications Home Medications: Ambulatory Orders Medication Instructions Recorded Confirmed Gabapentin [Neurontin] 200 mg PO DAILY 01/22/23 05/12/24 Trazodone HCl 200 mg PO HS PRN 01/22/23 05/12/24 clonazePAM [Clonazepam] 1 tab PO TID 01/22/23 05/12/24 Aspirin [Aspirin EC] 81 mg PO BID 11/19/23 05/12/24 Cholecalciferol (Vitamin D3) 1 tab PO DAILY 11/19/23 05/12/24 [Vitamin D3] oxyCODONE [Roxicodone] 5 tab PO ONCE PRN 11/19/23 05/12/24 Cholecalciferol [Vitamin D3] 25 mcg PO DAILY 05/12/24 05/12/24 Docusate Sodium [Dok] 100 mg PO DAILY 05/12/24 05/12/24 Oxycodone HCl/Acetaminophen 1 each PO Q4H PRN #8 tablet 05/12/24 [Percocet 5-325 mg Tablet] - Allergies Allergies/Adverse Reactions: Allergies Allergy/AdvReac Type Severity Reaction Status Date / Time Sulfa (Sulfonamide Allergy Unknown Verified 05/12/24 06:19 Antibiotics) - Social History Does the pt smoke?: Yes Smoking Status: Current every day smoker Does the pt drink ETOH?: No Does the pt have substance abuse?: No - Immunizations Immunizations are current?: No Immunizations: TDAP >10years/unknown - POLST Patient has POLST: No PD ED PE NORMAL - Vitals Vital signs reviewed: Yes - General General: Alert and oriented X 3, No acute distress, Well developed/nourished - HEENT HEENT: Atraumatic, PERRL, EOMI - Neck Neck: Supple, no meningeal sign - Cardiac Cardiac: RRR - Respiratory Respiratory: No respiratory distress, Clear bilaterally - Abdomen Abdomen: Non tender, Non distended - Derm Derm: Normal color, Warm and dry - Extremities Extremities: No deformity, Other (csm intact BL LE. some discomfort with rom of R hip) Results - Vitals Vitals: Vital Signs - 24 hr 05/12/24 06:19 Temperature 36.6 C Heart Rate 57 L Respiratory 95 H Rate Blood Pressure 134/74 H O2 Saturation 95 Oxygen O2 Source Room air PD Medical Decision Making - ED course ED course: 83yF p/w R hip pain that is chronic in character, worsening tonight when she walked out for a cigarette. Xrays noncontributory. Pain improved s/p IM dilaudid. Plan to f/u outpatient with orthopedics. return precautions given. Departure - Departure Disposition: 01 Home, Self Care Clinical Impression: Hip pain, right Condition: Stable Instructions: Hip Precautions Follow-Up: Lucas Ferraro MD [Provider Admit Priv/Credential] - Prescriptions: Oxycodone HCl/Acetaminophen [Percocet 5-325 mg Tablet] 1 each PO Q4H PRN #8 tablet PRN Reason: Pain >8 Comments: You were seen in the emergency department for hip pain. Your xrays did not show a break or dislocation. [facility]. Do not use when driving or operating heavy machinery. Dispose of any unused pills at your local police station. This medication may cause constipation. If you are prone to constipation then please take with [id number] sennadocusate and MiraLAX. Please follow-up with your primary care provider and orthopedics and return to the emergency department if you have any new or worsening symptoms or other concerns. Forms: PCP List
[2024-05-12] MEDS: HYDROmorphone 0.5 MG/0.5 ML SYRINGE IM STA (06:43)
[2024-05-12 08:29] VITALS: BP 133/58
--- NOTE | 2024-05-12 09:31 | XRAY Report ---
PROCEDURE: Hip w/Pelvis 2-3V RT INDICATIONS: hip pain X months TECHNIQUE: 3 views of the hip were acquired. COMPARISON: Right hip radiographs 12/26/2022. FINDINGS: Bones: Postsurgical changes are seen from prior fracture fixations involving the right pelvis and ri ght proximal femur with multiple metal screws. When compared to the prior radiographs, the positionin g of the femoral screws appears unchanged with the most superior screw tip approaching the femoral he ad articular surface. Osseous bridging across the fracture line is not definitely seen. Old healed ri ght superior and inferior pubic rami fractures are present. Questionable healed fracture deformities of the left pubic bone. Generalized osteopenia. Multifocal degenerative changes. Soft tissues: No suspicious soft tissue calcifications. IMPRESSION: 1.Postsurgical changes again seen from right proximal femoral fracture fixation with 3 metal screws. The most superior lateral screw approaches the articular surface of the right femoral head, which konstantin ears new when compared to the exam from 12/26/2022, and hardware migration is not excluded. 2.Postsurgical changes in the pelvis with intact hardware. Remote prior healed fracture deformities. 3.No acute osseous fracture identified. There is no significant discrepancy when compared with the preliminary overnight report. Reviewed by: Mateo Medina MD on 05/12/2024 9:30 AM PDT Approved by: Mateo Medina MD on 05/12/2024 9:30 AM PDT Station ID: [id number]
== END 2024-05-12 08:22 | disposition home or self-care (01) ==
LOC: EDUNIT# → EDSEX → ED 06:12
DX: M25.551 Pain in right hip (principal); Z79.82 Long term (current) use of aspirin; Z79.899 Other long term (current) drug therapy; F17.200 Nicotine dependence, unspecified, uncomplicated
CPT/HCPCS: 73502; 96372; 99283; 99284; J1170